=== PATIENT | female | born 1990 | race African-American/Black ===

== ENCOUNTER 2017-10-05 17:54 | Emergency (ER) | payer BC ==
[~2017-10-05] VITALS: Ht 152.4 cm; Wt 60.0 kg
[2017-10-05 18:02] VITALS: BP 137/80; PULSE 79; RESP 18; TEMP 98.2; O2SAT 100
[2017-10-05] MEDS ORDERED: IBUPROFEN 800 MG TAB PO ONE (18:45)
--- NOTE | 2017-10-05 19:44 | PD ---
HPI Chief Complaint: Injury Time Seen by Provider: 18:39 Travel History International Travel<30 days: No Contact w/Intl Traveler<30days: No Traveled to known affect area: No History of Present Illness HPI 27-year-old female presents to the emergency department with complaint of left foot and ankle pain and right knee pain and an abrasion to her right knee after tripping over a step today and falling. She denies hitting her head or loss of consciousness. Denies back pain or neck pain. Denies chest pain, shortness breath, abdominal pain, vomiting. Has been ambulatory after the fall. Has not taken any medications or try any treatments to alleviate her symptoms. Pain is aggravated with ambulation. Better at rest. Ankle and foot pain is to the lateral aspect. Knee pain is to the patellar aspect. Symptoms are moderate in severity. Up-to-date on tetanus vaccination. No primary care provider. Has history of asthma. Allergies as listed on the chart. Has no other medical complaints. No other modifying factors or associated signs and symptoms. PFSH Past Medical History Medical History: Denies Significant Hx Tetanus Vaccination: > 5 Years ?: Not Past Surgical History Surgical History: No Previous Surgery Social History Alcohol Use: No Tobacco Use: No Substance Use: No Allergies-Medications (Allergen,Severity, Reaction): Coded Allergies: acetaminophen (Verified Allergy, Severe, 10/05/17) citalopram (Verified Allergy, Severe, 10/05/17) hydromorphone (Verified Allergy, Severe, 10/05/17) shellfish derived (Verified Allergy, Severe, 10/05/17) trazodone (Verified Allergy, Severe, 10/05/17) Uncoded Allergies: zofran (Allergy, Severe, 10/05/17) Reported Meds & Prescriptions Reported Meds & Active Scripts Active Ibuprofen 800 Mg Tab 800 Mg PO Q6HR PRN Review of Systems Except as stated in HPI: all other systems reviewed are Neg Physical Exam Narrative GENERAL: Well-nourished, well-developed black female patient, in no acute distress; afebrile, nontoxic-appearing SKIN: Warm and dry. HEAD: Atraumatic. Normocephalic. EYES: Pupils equal and round. No scleral icterus. No injection or drainage. ENT: Mucosa pink and moist. Airway patent. NECK: Trachea midline. CARDIOVASCULAR: Regular rate. RESPIRATORY: No accessory muscle use. GASTROINTESTINAL: Flat. MUSCULOSKELETAL: Right knee nonedematous, nonerythematous, and without ecchymosis; abrasion noted to the patellar aspect; with full range of motion and flexion to 90; point tenderness to the patellar aspect; joint stable with negative drawer test; no obvious deformity. Left ankle with point tenderness to the lateral malleolar zone and left foot with tenderness palpation to the lateral foot; minimal edema noted; without erythema, ecchymosis; no obvious deformity. bilateral lower extremity is supple and non-tense with 2+ pedal pulse and sensory intact and without erythema or edema. NEUROLOGICAL: Awake and alert. Oriented 3. No obvious cranial nerve deficits. Motor grossly within normal limits. Normal speech. PSYCHIATRIC: Appropriate mood and affect; insight and judgment normal. Data Data Last Documented VS Vital Signs Date Time Temp Pulse Resp B/P (MAP) Pulse Ox O2 Delivery O2 Flow Rate FiO2 10/05/17 18:02 98.2 79 18 137/80 (99) 100 Orders Orders Ankle, Complete ([id number]) (10/05/17 18:44) Foot, Complete ([id number]) (10/05/17 18:44) Knee, Complete (4vws) (10/05/17 18:44) Crutches (10/05/17 18:44) Wound Care (10/05/17 18:44) Ibuprofen (Motrin) (10/05/17 18:45) Splint Or Brace Apply/Monitor (10/05/17 20:04) Ed Discharge Order (10/05/17 20:04) MDM Medical Decision Making Medical Screen Exam Complete: Yes Emergency Medical Condition: Yes Medical Record Reviewed: Yes Differential Diagnosis Patellar fracture, knee abrasion, knee contusion, ankle sprain, foot sprain, fracture Narrative Course 27-year-old female with right knee injury and abrasion and left ankle and foot injury after mechanical fall. Denies hitting her head or loss of consciousness. Denies neck pain or back pain. 2005: Left ankle, left foot, right knee x-rays conclude: Knee X-Ray 10/05/171843 Signed Impressions: Service Date/Time: September 19:01 - CONCLUSION: No acute abnormality is seen. Luis Daniel Booth MD Foot X-Ray 10/05/171843 Signed Impressions: Service Date/Time: September 18:56 - CONCLUSION: No acute disease. Luis Daniel Booth MD Ankle X-Ray 10/05/171843 Signed Impressions: Service Date/Time: September 18:58 - CONCLUSION: No fracture or soft tissue swelling at the ankle. There is a small fragment seen adjacent to the base of the fifth metacarpal which could be from a small avulsion fracture with some edema. Luis Daniel Booth MD X-ray findings discussed with patient. Since that x-ray of the foot was obtained and there is no acute findings I do not feel it is necessary to treat the questionable small avulsion fracture on the ankle x-ray. This was discussed with the patient and I told her to follow-up in 7-10 days if symptoms persist. Cliff bandage, ankle stirrup splint ordered for the left ankle and foot. Cliff bandage to the right knee ordered. Crutches provided for support. Ibuprofen prescribed for home. Instructed patient to follow-up outpatient if symptoms persist greater than 7-10 days. Instructed patient to follow up with primary care provider. Patient verbalizes understanding and agreement with treatment plan. Patient is medically cleared and stable for discharge. Discussed reasons to return to the emergency department. Patient agrees with treatment plan. The patients vital signs are stable and the patient is stable for outpatient follow-up and treatment. Patient discharged home, stable and in no acute distress. Diagnosis Primary Impression: Fall Qualified Codes: W19.XXXA - Unspecified fall, initial encounter Additional Impressions: Abrasion of right knee Qualified Codes: S80.211A - Abrasion, right knee, initial encounter Left ankle injury Qualified Codes: S99.912A - Unspecified injury of left ankle, initial encounter Injury of left foot Qualified Codes: S99.922A - Unspecified injury of left foot, initial encounter Right knee injury Qualified Codes: S89.91XA - Unspecified injury of right lower leg, initial encounter Referrals: Orthopaedic Surgeon Primary Care Physician Patient Instructions: Abrasion (ED), Ankle Sprain (ED), Foot Sprain (ED), General Instructions, Knee Sprain (ED) Departure Forms: Tests/Procedures, Work Release Enter return to work date: Oct 10, 2017 Additional Instructions: Tylenol or ibuprofen as directed and as needed for pain and inflammation Rest, ice, compress, and elevate extremity to decrease pain and inflammation Ankle Brace for support Splint for support Crutches for support Avoid aggravating activity; increase activity as tolerated Follow-up with primary care provider Follow-up with orthopedics as needed Return to the emergency department immediately with worsening of symptoms Med/Other Pt SpecificInfo: Prescription(s) given Scripts Ibuprofen (Ibuprofen) 800 Mg Tab 800 MG PO Q6HR Y for PAIN, #30 TAB 0 Refills Prov: Annabelle Medrano 10/05/17 Disposition: 01 DISCHARGE HOME Condition: Stable Annabelle Medrano Oct 05, 2017 19:44
--- NOTE | 2017-10-05 19:45 | RADRPT ---
EXAM DATE/TIME: 10/05/2017 18:56 [facility] COMPARISON: No previous studies available for comparison. INDICATIONS : Left foot pain after fall on floor. MEDICAL HISTORY : None. SURGICAL HISTORY : None. ENCOUNTER: Initial ACUITY: 1 day PAIN SCORE: 10/10 LOCATION: Left lateral foot. FINDINGS: Three view examination of the left foot demonstrates no soft tissue swelling, dislocation, or fractur e. The tarsal bones appear intact. The interphalangeal and metatarsophalangeal joints are intact. The calcaneus is intact. Bony mineralization is normal. CONCLUSION: No acute disease. Luis Daniel Booth MD on October 05, 2017 at 19:43 Board Certified Radiologist. This report was verified electronically.
--- NOTE | 2017-10-05 19:48 | RADRPT ---
EXAM DATE/TIME: 10/05/2017 18:58 [facility] COMPARISON: No previous studies available for comparison. INDICATIONS : Left ankle pain after fall on floor. MEDICAL HISTORY : None. SURGICAL HISTORY : None. ENCOUNTER: Initial ACUITY: 1 day PAIN SCORE: 10/10 LOCATION: Left lateral ankle. FINDINGS: Three view exam was performed of the left ankle. The bony structures at the ankle are in normal alig nment. No evidence of fracture, dislocation, or soft tissue swelling at the ankle. The ankle mortis e is intact. No radiopaque foreign bodies are seen. Bony mineralization is normal. There is a small bony density seen adjacent to the base of the fifth metacarpal. Minimal fracture fra gment could have this appearance. There appears to be some lateral soft tissue swelling. CONCLUSION: No fracture or soft tissue swelling at the ankle. There is a small fragment seen adjacent to the base of the fifth metacarpal which could be from a small avulsion fracture with some edema. Luis Daniel Booth MD on October 05, 2017 at 19:44 Board Certified Radiologist. This report was verified electronically.
--- NOTE | 2017-10-05 19:50 | RADRPT ---
EXAM DATE/TIME: 10/05/2017 19:01 [facility] COMPARISON: No previous studies available for comparison. INDICATIONS : Right knee pain after fall on floor today. MEDICAL HISTORY : None. SURGICAL HISTORY : None. ENCOUNTER: Initial ACUITY: 1 day PAIN SCORE: 10/10 LOCATION: Right anterior knee. FINDINGS: Four view examination of the right knee demonstrates no evidence of fracture or dislocation. Bony mi neralization is normal. The articular surfaces are intact. The suprapatellar soft tissues have a no rmal configuration. There is a benign cortical lesion seen at the distal femoral shaft medially measu ring 5 cm in length. 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 CONCLUSION: No acute abnormality is seen. Luis Daniel Booth MD on October 05, 2017 at 19:47 Board Certified Radiologist. This report was verified electronically.
[2017-10-05] MEDS ORDERED: IBUP1TAB7 PO (20:08)
== END 2017-10-05 20:38 | disposition home or self-care (01) ==
LOC: NEPK 17:54
DX: S99.912A Unspecified injury of left ankle, initial encounter (principal); S99.922A Unspecified injury of left foot, initial encounter; S89.91XA Unspecified injury of right lower leg, initial encounter; S80.211A Abrasion, right knee, initial encounter; J45.909 Unspecified asthma, uncomplicated; W01.0XXA Fall on same level from slipping, tripping and stumbling without subsequent striking against object, initial encounter; Z88.6 Allergy status to analgesic agent; Z88.5 Allergy status to narcotic agent; Z88.8 Allergy status to other drugs, medicaments and biological substances
CPT/HCPCS: 73564; 73610; 73630; 99284; E0113; L1906